=== PATIENT | male | born 1980 | race Two or more races ===

== ENCOUNTER 2018-11-29 11:37 | Outpatient (CLI) | payer OTHER | END 2018-11-29 23:59 | disposition home or self-care (01) | LOC: RAD 11:37 | PROVIDERS: ATTEND Internal Medicine Critical Care Medicine | DX: Z02.9 Encounter for administrative examinations, unspecified (principal) ==

== ENCOUNTER 2018-12-11 13:19 | Outpatient (CLI) | payer OTHER ==
[2019-01-01] MEDS ORDERED: FENO134C PO (14:42)
== END 2018-12-11 23:59 | disposition home or self-care (01) ==
LOC: CARD 13:19
PROVIDERS: ATTEND Internal Medicine Critical Care Medicine
DX: J84.9 Interstitial pulmonary disease, unspecified (principal)
CPT/HCPCS: 94060; 94690; 99406

== ENCOUNTER 2018-12-12 08:50 | Outpatient (CLI) | payer OTHER ==
[2019-01-01] MEDS ORDERED: FENO134C PO (14:42)
== END 2018-12-12 23:59 | disposition home or self-care (01) ==
LOC: CARD 08:50
PROVIDERS: ATTEND Internal Medicine Critical Care Medicine
DX: Z02.9 Encounter for administrative examinations, unspecified (principal)

== ENCOUNTER → 2019-01-01 | Outpatient (CLI) | payer OTHER ==
[~2019-01-01] MED LIST: FENO134C PO
[2019-01-01 15:36] LABS: BASOPHILS # (AUTO) 0.04 x10^3/uL (0-0.1); BASOPHILS % (AUTO) 1 % (0-1); EOSINOPHILS # (AUTO) 0.25 x10^3/uL (0-0.4); EOSINOPHILS % (AUTO) 3 % (1-7); LYMPHOCYTES # (AUTO) 2.53 x10^3/uL (1-3.4); LYMPHOCYTES % (AUTO) 29 % (22-44); MD NO; MEAN CORPUSCULAR HEMOGLOBIN 29.1 pg (27.5-34.5); MEAN CORPUSCULAR HGB CONC 33.6 g/dL (33.2-36.2); MEAN CORPUSCULAR VOLUME 86.5 fL (81-97); MEAN PLATELET VOLUME 8.3 fL (7.4-10.4); MONOCYTES # (AUTO) 0.75 x10^3/uL (0.2-0.8); MONOCYTES % (AUTO) 9 % (2-9); NEUTROPHILS # (AUTO) 5.05 x10^3/uL (1.8-6.8); NEUTROPHILS % (AUTO) 59 % (42-75); PLATELET COUNT 355 x10^3/uL (130-400); RED BLOOD COUNT 5.46 x10^6/uL (4.38-5.82); RED CELL DISTRIBUTION WIDTH 13.7 % (9.4-14.8)
[2019-01-01 15:48] LABS: ALANINE AMINOTRANSFERASE 30 U/L (12-78); ALBUMIN 3.8 g/dL (3.4-5.0); ANION GAP 10 mmol/L (5-15); CALCIUM 9.5 mg/dL (8.5-10.1); CHLORIDE 107 mmol/L (98-107); CREATININE 1.14 mg/dL (0.7-1.3)
[2019-01-01 15:50] LABS: ALKALINE PHOSPHATASE 68 U/L (45-117); BILIRUBIN,TOTAL 0.4 mg/dL (0.2-1.0)
== END | disposition home or self-care (01) ==
LOC: STAR 14:14
PROVIDERS: ATTEND Surgery
DX: Z01.818 Encounter for other preprocedural examination (principal); R00.0 Tachycardia, unspecified
CPT/HCPCS: 36415; 80053; 85025; 93005

== ENCOUNTER 2019-01-07 06:52 | Inpatient (IN) | payer OTHER ==
[~2019-01-07] VITALS: Ht 170.2 cm; Wt 97.5 kg
[2019-01-07] MEDS ORDERED: LACTATED RINGERS 1,000 ML IV SCH (07:04)
[2019-01-07] MEDS ORDERED: BUPIVACAINE/PF-EPI 0.5% 1:200K ONE (07:42)
[2019-01-07] MEDS ORDERED: ACETAMINOPHEN 500 MG TABLET ONE (08:49)
[2019-01-07] MEDS ORDERED: GABAPENTIN 300 MG CAPSULE ONE (08:49)
[2019-01-07] MEDS ORDERED: MIDAZOLAM 1 MG/ML, 2ML ONE (08:57)
[2019-01-07] MEDS ORDERED: FENTANYL PF 250 MCG/5ML ONE (08:57)
[2019-01-07] MEDS ORDERED: ROCURONIUM 10 MG/ML,10ML ONE (09:02)
[2019-01-07] MEDS ORDERED: DEXAMETHASONE 4 MG/ML, 1ML ONE (09:02)
[2019-01-07] MEDS ORDERED: PROPOFOL 10 MG/ML, 20ML ONE (09:02)
[2019-01-07] MEDS ORDERED: NEOSTIGMINE 1 MG/ML, 10ML ONE (09:02)
[2019-01-07] MEDS ORDERED: ONDANSETRON 2MG/ML, 2ML ONE (09:02)
[2019-01-07] MEDS ORDERED: GLYCOPYRROLATE 0.2MG/1ML, 5ML ONE (09:02)
[2019-01-07] MEDS ORDERED: CEFAZOLIN 1,000 MG ONE (09:02)
[2019-01-07] MEDS ORDERED: hydrALAzine 20 MG/ML, 1ML IV PRN (10:00)
[2019-01-07] MEDS ORDERED: HALOPERIDOL 5 MG/ML IV PRN (10:00)
[2019-01-07] MEDS ORDERED: PROMETHAZINE 25 MG/ML, 1ML IV PRN (10:00)
[2019-01-07] MEDS ORDERED: LABETALOL 5MG/ML, 20ML IV PRN (10:00)
[2019-01-07] MEDS ORDERED: OXYcodone 5 MG/5 ML ORAL.SOL UDC PO PRN (10:00)
[2019-01-07] MEDS ORDERED: HYDROmorphone 2 MG/ML, 1ML IVPush PRN (10:00)
[2019-01-07] MEDS ORDERED: ALBUTEROL SULFATE 2.5 MG/3 ML NPPB PRN (10:00)
[2019-01-07] MEDS ORDERED: MEPERIDINE/PF 100 MG/ML ONE (10:20)
[2019-01-07] MEDS: FENTANYL PF 100 MCG/2ML IV PRN ×5 (10:35→11:40)
[2019-01-07] MEDS ORDERED: FENTANYL PF 100 MCG/2ML ONE ×2 (10:36→11:13)
[2019-01-07] MEDS ORDERED: OXYcodone 5 MG/5 ML ORAL.SOL UDC ONE (11:05)
[2019-01-07 12:05] VITALS: BP 125/88
[2019-01-07] MEDS ORDERED: POTASSIUM CHLORIDE 20 MEQ in D5%-0.45% NACL 1,000 ML IV SCH (12:30)
[2019-01-07] MEDS ORDERED: OXYcodone IR 5MG TABLET PO PRN (12:30)
[2019-01-07] MEDS ORDERED: ONDANSETRON 2MG/ML, 2ML IV PRN (12:30)
[2019-01-07] MEDS: morphine SULFATE 10 MG/ML, 1ML IV PRN ×2 (13:51→16:27)
[2019-01-07] MEDS: ACETAMINOPHEN 500 MG TABLET PO SCH ×2 (15:16→21:43)
[2019-01-07] MEDS: CEFAZOLIN PMX 2GM/50ML 50 ML IVPB SCH (16:29)
[2019-01-07] MEDS: IBUPROFEN 800 MG TABLET PO SCH (17:06)
[2019-01-07 18:29] VITALS: BP 120/83
[2019-01-07] MEDS: SODIUM CHLORIDE FLUSH 10ML SYR IVF SCH (21:44)
[2019-01-08] MEDS: CEFAZOLIN PMX 2GM/50ML 50 ML IVPB SCH (00:49)
[2019-01-08 00:57] VITALS: BP 126/89
[2019-01-08 03:44] VITALS: BP 110/78
[2019-01-08] MEDS: ACETAMINOPHEN 500 MG TABLET PO SCH ×2 (03:45→09:36)
[2019-01-08 07:50] VITALS: BP 117/72
[2019-01-08] MEDS ORDERED: ENOXAPARIN 40 MG/0.4 ML SQ SCH (08:00)
[2019-01-08] MEDS ORDERED: FENOFIBRATE 145 MG TABLET PO SCH (09:00)
[2019-01-08] MEDS: SODIUM CHLORIDE FLUSH 10ML SYR IVF SCH (09:36)
[2019-01-08] MEDS: IBUPROFEN 800 MG TABLET PO SCH ×2 (09:36→12:32)
[2019-01-08] MEDS ORDERED: ACET-1600 PO (10:57)
[2019-01-08] MEDS ORDERED: IBUP200T49 PO (10:58)
[2019-01-08] MEDS ORDERED: OXYC5TAB2 PO (10:59)
[2019-01-08 12:24] VITALS: BP 123/79
== END 2019-01-08 13:43 | disposition home or self-care (01) | DRG 165 ==
LOC: ORIP 06:52 → 4NOR 12:04 → DCLOUNGE 01-08 13:40
PROVIDERS: ADMIT Surgery; ATTEND Surgery
PROC: 0BBG4ZZ Excision of Left Upper Lung Lobe, Percutaneous Endoscopic Approach (ICD-10-PCS; 2019-01-07)
PROC: 0BBJ4ZZ Excision of Left Lower Lung Lobe, Percutaneous Endoscopic Approach (ICD-10-PCS; principal; 2019-01-07 09:00)
DX: J84.9 Interstitial pulmonary disease, unspecified (principal)
CPT/HCPCS: 36415; J3490; 71045; 86850; 86900; 87015; 87070; 87075; 87102; 87116; 87205; 87206; 88307; G0378; J0690; J1100; J1650; J2250; J2405; J2704; J2710; J3010; J3480; C1760; J2175; J2270; J7120

== ENCOUNTER → 2019-01-22 | Outpatient (CLI) | payer OTHER ==
[~2019-01-22] MED LIST changes: +ACET-1600 PO; +IBUP200T49 PO; +OXYC5TAB2 PO
== END | disposition home or self-care (01) ==
LOC: RAD 12:08
PROVIDERS: ATTEND Internal Medicine Critical Care Medicine
DX: J92.9 Pleural plaque without asbestos (principal); R91.8 Other nonspecific abnormal finding of lung field; J84.9 Interstitial pulmonary disease, unspecified
CPT/HCPCS: 71046

== ENCOUNTER 2019-05-27 12:34 | Outpatient (CLI) | payer OTHER | END 2019-05-27 23:59 | disposition home or self-care (01) | LOC: RAD 12:34 | PROVIDERS: ATTEND Internal Medicine Critical Care Medicine | DX: J84.9 Interstitial pulmonary disease, unspecified (principal) | CPT/HCPCS: 71250; 94060; 94618; 94726; 94729 ==